=== PATIENT | female | born 1955 | race Two or more races ===

== ENCOUNTER 2024-06-15 18:42 | Inpatient (IN) | payer OTHER, MEDICAID ==
[~2024-06-15] VITALS: Ht 147.3 cm; Wt 103.2 kg
[~2024-06-15 18:42] MED LIST: ALBU108A5 IN; ATOR-507 PO; DORZ2SOL18 EACHEYE; GLIP10TA9 PO; HYDR50TA47 PO; INSU1INJ3 SC; LEVO175T4 PO; METO-159 PO; SPIR25TA8 PO
--- NOTE | 2024-06-15 19:00 | ECG ---
[facility] Test Date: 2024-06-15 Test Time: 18:48:58 Pat Name: DARLIN COTTRELL Department: ER Room: [facility]T Gender: F Inspector Boiler: HILARIO : 1955 Requested By: EDDIE MATOS Order Number: [id number] Reading MD: Woodrow Barriga Measurements Intervals [place] Rate: 83 P: 44 NH: 182 QRS: -28 QRSD: 109 T: 70 QT: 413 QTc: 486 Interpretive Statements Sinus rhythm Borderline left axis deviation Low voltage, precordial leads Anteroseptal infarct, old Electronically Signed On 06-20-2024 18:25:59 PDT by Woodrow Barriga Please click the below link to view image of tracing.
--- NOTE | 2024-06-15 19:14 | ED.PDOC ---
HPI Comments HPI: Poor Historian. 68 y.o female accompanied by family member, presents to the ED for an initial chief complaint of SOB associated with sternal nonradiating chest pain today. Patient was seen at urgent care earlier today for her symptoms. Per urgent care report, patient had an X ray done 3 months ago showing cardiomegaly and pulmonary edema with last X ray at out hospital on March showing pulmonary vascular congestion congestive heart failure low volume. Patient denies any other symptoms or pain at this time. VITALS: Temp: 98.2 F BP: 143/52 HR: 83 RR: 17 SPO2: 97% RA Past medical history: Thyroid disease, on ASA 81mg, DM, CHF, CKD stage 3, hyperlipidemia Past surgical history: Denies REVIEW OF SYSTEMS: CONSTITUTIONAL: Denies acute: fever, diaphoresis, chills, generalized weakness. HEAD: Denies acute: headache, photophobia Eyes: Denies acute: Double vision, vision loss, eye pain, eye discharge. EARS: Denies acute: tinnitus, hearing loss, ear discharge, ear pain, THROAT: Denies acute: sore throat, swelling, difficulty swallowing , pain with swallowing, change in voice. NECK: Denies acute: neck pain, neck swelling, stiff neck. HEART: Denies acute : palpitations, LUNGS: Denies acute: wheezing, cough, hemoptysis ABDOMEN: Denies acute: abdominal pain, Nausea, Vomiting, diarrhea, melena , hematemesis, hematochezia SKIN: Denies acute: rash, redness, lesions, itchiness. EXTREMITIES: Denies acute: calf pain, numbness, tingling, weakness, denies pain in extremity. Denies acute: Low back pain. Neuro: Denies acute: focal neurological deficit, motor or sensory focal neurological deficit, tremors, seizure like activity, confusion, dizziness, change in mental status, loss of bowel or bladder function, cauda equina like symptoms. : Denies acute: dysuria, hematuria, flank pain, increase in urinary frequency. PSYCH: Denies acute: hallucination, suicidal ideation, homicidal ideation. FEMALE: Denies acute: abnormal vaginal bleeding, foul odor, unusual discharge. PHYSICAL EXAM: General: no acute distress, awake and alert. Head: normocephalic, atraumatic. Neck: supple, trachea is midline, no swelling. Throat: Normal phonation. Eyes:, no erythema, no purulent discharge, no proptosis, no icterus. Heart: regular rate, regular rhythm, no significant murmur appreciated. Lungs: no apparent respiratory distress, Able to speak in full sentences. No wheezing, no rhonchi, no crackles. No stridors Clear to auscultation bilaterally. Abdomen: non tender to palpation, non distended, soft, no guarding, no rebound, + bowel sounds. Obese Neuro: Awake, Alert, oriented to name, self, situation, follows commands GCS=15. Speech is normal. Skin: no petechia, no purpura, no cyanosis, non-pale, not jaundice. Lower extremities: --1/4 bilateral - Pitting edema no deformity, no focal swelling, no calf TTP. Makes eye contact. moves all four extremities. ED COURSE: Chief Complaint: Chest Pain Time Seen by MD: 19:02 Reviewed Notes: Allergies Allergies: Uncoded Allergies: BERLINTA (Allergy, Unknown, 06/15/24) Information Source: Patient, Relative Mode of Arrival: Wheelchair Past Medical History PAST MEDICAL HISTORY: CHF, CKF, DM, Thyroid Surgical History: Denies all surgeries WAREHOUSE MANAGER History: No Pertinent WAREHOUSE MANAGER History Family History Family History: Reviewed,noncontributory to illness Social History Smoker: Non-Smoker Alcohol: Denies ETOH Use Drugs: Denies Drug Use Lives In: Home Was a procedure done? Was a procedure done?: No CP Differential Dx Differential Diagnosis: N/A Differential Diagnosis: Angina, Chest Wall Pain, Costochondritis, Pericarditis, Pneumonia, Pulmonary Embolus, Other (Ddx include but not limitied to gastritis, musculoskeletal pain, radiculopathy, atypical chest pain, dissection, aneurysm, ACS, unstable angina, hiatal hernia, GERD, anxiety, costochondritis, PE, pneumothroax, neoplasm, cardiac ischemia, drug abuse, anemia.) X-Ray, Labs, Meds, VS Vital Signs Date Time Temp Pulse Resp B/P (MAP) Pulse Ox O2 Delivery O2 Flow Rate FiO2 06/15/24 18:56 98.2 97 17 143/52 (82) 97 Lab Test 06/15/24 22:44 06/15/24 21:00 06/15/24 20:34 06/15/24 19:29 Range/Units Lactic Acid Level 1.7 2.3 *H 0.4-2.0 mmol/L Troponin I High Sensitivity 36 *H 34 </=34 ng/L Prothrombin Time 10.7 9.3-11.8 sec Prothrombin Time INR 1.01 0.9-1.15 D-Dimer, Quantitative 0.35 0.0-0.49 mg/L FEU Blood Gas Specimen Type Arterial Blood Gas Sample Site Right radial Blood Gas Patient Temperature 37.0 Arterial Blood Date Drawn [id number] Arterial Blood pH 7.487 H 7.350-7.450 Arterial Blood Partial Pressure CO2 33.7 32.0-45.0 mmHg Arterial Blood Partial Pressure O2 57.9 L 83.0-108.0 mmHg Arterial Blood HCO3 24.9 21.0-28.0 mmol/L Arterial Blood Oxygen Saturation 89.6 L 94.0-98.0 % Arterial Blood Base Excess 1.8 -2.0-3.0 mmol/L Arterial Blood Oxyhemoglobin 88.5 L 94.0-98.0 % Arterial Blood Carboxyhemoglobin 0.7 0.5-1.5 % Arterial Blood Methemoglobin 0.5 0.0-1.5 % Vidal Test Modified Blood Gas Total Hemoglobin 10.70 L 12.0-16.0 g/dL Blood Gas Modality Room air FiO2 % 21.0 Test 06/15/24 19:24 Range/Units White Blood Count 16.2 H 4.4-10.8 10^3/uL Red Blood Count 3.26 L 4.0-5.20 10^6/uL Hemoglobin 10.0 L 12.2-16.2 g/dL Hematocrit 29.2 L 36.0-46.0 % Mean Corpuscular Volume 89.5 80.0-100.0 fL Mean Corpuscular Hemoglobin 30.8 28.0-32.0 pg Mean Corpuscular Hemoglobin Concent 34.4 32.0-36.0 g/dL Red Cell Distribution Width 16.3 H 11.8-14.3 % Platelet Count 245 140-450 10^3/uL Mean Platelet Volume 8.4 6.9-10.8 fL Neutrophils (%) (Auto) 80.2 H 37.0-80.0 % Lymphocytes (%) (Auto) 9.6 L 10.0-50.0 % Monocytes (%) (Auto) 8.5 0.0-12.0 % Eosinophils (%) (Auto) 1.5 0.0-7.0 % Basophils (%) (Auto) 0.2 0.0-2.0 % Neutrophils # (Auto) 13.0 H 1.6-8.6 10 ^3/uL Lymphocytes # (Auto) 1.6 0.4-5.4 10 ^3/uL Monocytes # (Auto) 1.4 H 0-1.3 10 ^3/uL Eosinophils # (Auto) 0.2 0-0.8 10 ^3/uL Basophils # (Auto) 0 0-0.2 10 ^3/uL Nucleated Red Blood Cells 0.2 % Sodium Level 138 136-145 mmol/L Potassium Level 3.9 3.5-5.1 mmol/L Chloride Level 101 98-107 mmol/L Carbon Dioxide Level 24 20-31 mmol/L Anion Gap 13 5-15 Blood Urea Nitrogen 24 H 9-23 mg/dL Creatinine 1.10 H 0.550-1.02 mg/dL Glomerular Filtration Rate Calc 54 >90 mL/min BUN/Creatinine Ratio 21.8 H 10.0-20.0 Serum Glucose 183 H 74-106 mg/dL Calcium Level 9.4 8.7-10.4 mg/dL Total Bilirubin 0.7 0.2-1.0 mg/dL Aspartate Amino Transferase (AST) 18 13-40 U/L Alanine Aminotransferase (ALT) 20 7-40 U/L Alkaline Phosphatase 80 46-116 U/L Troponin I High Sensitivity 32 </=34 ng/L B-Type Natriuretic Peptide 238.87 0-100 pg/mL Total Protein 7.3 5.7-8.2 g/dL Albumin 4.6 3.2-4.8 g/dL Current Medications Medications (Trade) Dose Ordered Sig/Fela Route Start Time Stop Time Status Last Admin Aspirin (Ecotrin Enteric Coated Tablet) 325 mg ONCE ONCE PO 06/15/24 19:15 06/15/24 19:16 DC 06/15/24 23:32 Ceftriaxone Sodium 50 ml @ 100 mls/hr ONCE ONCE IV 06/15/24 20:30 06/15/24 20:59 DC 06/16/24 00:[address] [address] Ph: [phone] DIAGNOSTIC IMAGING Diagnostic Imaging Report : [id number] Signed PATIENT: DARLIN COTTRELL ACCT: [id number] UNIT: [id number] : 1955 LOC: OVERFLOW ROOM / BED: [facility] / A AGE / SEX: 68 / F ADM STATUS: ADM IN SERVICE 2310 ORDERING PHYSICIAN: JESSICA MEDRANO PROCEDURE(s): LFTCT - CT L FOOT WO CONTRAST REASON: left foot wound ORDER NUMBER(s): [id number], ACCESSION NUMBER(s): [id number] EXAM: CT CT L FOOT WO CONTRAST INDICATION: left foot wound Exam Date: 06/15/2024 11:17 PM COMPARISON: None TECHNIQUE: CT of the left foot without IV contrast administration. RADIATION DOSE: CTDIvol: 7.75 mGy, DLP: 237.14 mGy*cm Findings/ IMPRESSION: Status post amputation of the 1st digit. No evidence of acute fracture or dislocation. No obvious destructive osseous lesions. Diffuse subcutaneous tissue fat stranding and increased attenuation which may be from edema versus cellulitis versus phlegmon. No focal fluid collection to suggest abscess. Large inferior and posterior calcaneal enthesophytes. Large talar beaking. Diffuse vascular calcifications. ATED BY: JOLEEN MEJÍA DO DICTATED DATE/TIME: 06/16/2433 SIGNED BY: JOLEEN MEJÍA DO SIGNED DATE/TIME: 06/16/2433 CC: [address] [address] Ph: [phone] DIAGNOSTIC IMAGING Diagnostic Imaging Report : [id number] Signed PATIENT: DARLIN COTTRELL ACCT: [id number] UNIT: [id number] : 1955 LOC: ER ROOM / BED: / AGE / SEX: 68 / F ADM STATUS: REG ER SERVICE 1858 ORDERING PHYSICIAN: EDDIE MATOS DO PROCEDURE(s): CXRP - CHEST PORTABLE REASON: cp ORDER NUMBER(s): [id number], ACCESSION NUMBER(s): [id number] EXAMINATION: AP portable chest radiograph CLINICAL HISTORY: Chest pain COMPARISON: None FINDINGS: Cardiac silhouette appears enlarged. Central vascular redistribution and interstitial prominence. No definite pleural effusion or pneumothorax. No lobar consolidation identified. IMPRESSION: Congestive type pattern. Please correlate to exclude atypical infection. ATED BY: SINGH DAVEY MD DICTATED DATE/TIME: 06/15/241946 SIGNED BY: SINGH DAVEY MD SIGNED DATE/TIME: 06/15/241946 CC: Time of 1ST Reevaluation: 19:06 Reevaluation 1ST: Unchanged Patient Education/Counseling: Diagnosis, Treatment Family Education/Counseling: No Family Present Comments Patient presented with the above HPI.---body---workup was initiated. patient was found with the above mentioned diagnosis. the following medications were ordered: please refer to order lists of meds and tests obtained by myself Dr. Matos. Patient ED course and VS have been stabilized. Patient has been reassessed in the ED and remained in a stable condition. Pertinent incidental findings were discussed with the patient and/or family. Patient/family voices understanding and is agreeable with plan. Patient has been observed in the ED adequate length of time to insure improvement/stability. Escalation of care considered: Consideration of escalation to observation or admission Patient was ADMITTED to the medicine team for further evaluation and treatment of their presentation. D-dimer was negative. Chest x-ray suggests a pneumonia. Antibiotics initiated. All the reports of any imaging studies that were ordered by myself were reviewed by myself. Departure 1 Departure Time of Disposition: 20:21 Impression: Primary Impression: Chest pain Additional Impressions: Dyspnea Pneumonia Leukocytosis Hypoxemia Elevated troponin Disposition: ADMITTED INPATIENT Admit to: Tele Condition: Guarded Discharged With: Self Critical Care Note Critical Care Time?: Yes (35 min-critical care time only) Heart Score Heart Score: Heart Score Response (Comments) Value History Slightly Suspicious 0 EKG Normal 0 Age >65 2 Risk Factors >3 or Hx ASHD 2 Troponin 1-2 x's Normal limit 1 Total 5 I personally scribed for EDDIE MATOS DO ([email or web address]) on 06/15/24 at 19:14. Electronically submitted by Jacquelin Sanchez ([email or web address]). I personally scribed for EDDIE MATOS DO ([email or web address]) on 06/16/24 at 01:03. Electronically submitted by Masoud Guadarrama ([email or web address]). EDDIE MATOS DO Jun 15, 2024 19:14
--- NOTE | 2024-06-15 19:49 | DVH ---
EXAMINATION: AP portable chest radiograph CLINICAL HISTORY: Chest pain COMPARISON: None FINDINGS: Cardiac silhouette appears enlarged. Central vascular redistribution and interstitial prominence. No definite pleural effusion or pneumothorax. No lobar consolidation identified. IMPRESSION: Congestive type pattern. Please correlate to exclude atypical infection.
[2024-06-15 20:02] LABS: Basophils # (auto) 0 10 ^3/uL (0-0.2); Basophils % (auto) 0.2 % (0.0-2.0); Eosinophils # (auto) 0.2 10 ^3/uL (0-0.8); Eosinophils % (auto) 1.5 % (0.0-7.0); Hematocrit 29.2 % (36.0-46.0); Lymphocytes # (auto) 1.6 10 ^3/uL (0.4-5.4); Lymphocytes % (auto) 9.6 % (10.0-50.0); Mean Corpuscular Hemoglobin 30.8 pg (28.0-32.0); Mean Corpuscular Hgb Conc. 34.4 g/dL (32.0-36.0); Mean Corpuscular Volume 89.5 fL (80.0-100.0); Monocytes # (auto) 1.4 10 ^3/uL (0-1.3); Monocytes % (auto) 8.5 % (0.0-12.0); Neutrophils % (auto) 80.2 % (37.0-80.0); Nucleated Red Blood Cells % 0.2 %; Platelet Count (auto) 245 10^3/uL (140-450); Red Blood Cells 3.26 10^6/uL (4.0-5.20); Red Cell Distribution Width 16.3 % (11.8-14.3); White Blood Cell 16.2 10^3/uL (4.4-10.8)
[2024-06-15 20:21] LABS: Alanine Aminotransferase 20 U/L (7-40); Albumin 4.6 g/dL (3.2-4.8); Alkaline Phosphatase 80 U/L (46-116); Anion Gap 13 (5-15); Aspartate Aminotransferase 18 U/L (13-40); BUN/Creatinine Ratio 21.8 (10.0-20.0); Bilirubin, Total 0.7 mg/dL (0.2-1.0); Calcium 9.4 mg/dL (8.7-10.4); Carbon Dioxide 24 mmol/L (20-31); Chloride 101 mmol/L (98-107); Potassium 3.9 mmol/L (3.5-5.1); Sodium 138 mmol/L (136-145); Total Protein 7.3 g/dL (5.7-8.2)
[2024-06-15 20:23] LABS: Lactic Acid w/Reflex 2.3 mmol/L (0.4-2.0)
[2024-06-15 20:23] LABS: Blood Urea Nitrogen 24 mg/dL (9-23); Glucose 183 mg/dL (74-106)
[2024-06-15 20:41] LABS: Base Excess 1.8 mmol/L (-2.0-3.0)
[2024-06-15] MEDS ORDERED: ONDANSETRON HCL 4 MG/2 ML VIAL IV PRN (23:15)
[2024-06-15] MEDS ORDERED: MORPHINE SULFATE INJ 2 MG/ml SYRG IV PRN (23:15)
[2024-06-15] MEDS ORDERED: NITROGLYCERIN 0.4 MG SL TAB SL PRN (23:15)
[2024-06-15] MEDS ORDERED: HYDROcodone-ACET 5/325MG TAB PO PRN (23:15)
[2024-06-15] MEDS ORDERED: ACETAMINOPHEN 325 MG TAB PO PRN (23:15)
[2024-06-15] MEDS: ASPirin-EC 325mg tab PO ONE (23:32)
[2024-06-15 23:36] LABS: INR 1.01 (0.9-1.15); Prothrombin Time 10.7 sec (9.3-11.8)
--- NOTE | 2024-06-16 00:38 | DVH ---
EXAM: CT CT L FOOT WO CONTRAST INDICATION: left foot wound Exam Date: 06/15/2024 11:17 PM COMPARISON: None TECHNIQUE: CT of the left foot without IV contrast administration. RADIATION DOSE: CTDIvol: 7.75 mGy, DLP: 237.14 mGy*cm Findings/ IMPRESSION: Status post amputation of the 1st digit. No evidence of acute fracture or dislocation. No obvious de structive osseous lesions. Diffuse subcutaneous tissue fat stranding and increased attenuation which may be from edema versus cellulitis versus phlegmon. No focal fluid collection to suggest abscess. La rge inferior and posterior calcaneal enthesophytes. Large talar beaking. Diffuse vascular calcificati ons.
[2024-06-16] MEDS: cefTRIAXone 1GM/50ML D5W 50 ML IV ONE (00:58)
[2024-06-16 01:11] LABS: COVID19 ANTIGEN SOFIA FIA NEGATIVE (NEGATIVE); Rapid Influenza A Negative (Negative); Rapid Influenza B Negative (Negative)
[2024-06-16] MEDS ORDERED: VANCOMYCIN PER PHARMACY 0 MG IV SCH (01:15)
[2024-06-16] MEDS ORDERED: DEXTROSE (50%) 50ML SYRG IV PRN (01:15)
--- NOTE | 2024-06-16 01:27 | DVHHP2 ---
Admitting Diagnosis: CHF exacerbation, hypoxia, left foot wound History of Present Illness History Source: Patient, Family Exam Limitations: No limitations HPI Mrs. Joann Galvan is a 68 y.o female accompanied by family member, with a history of DM, CHF, CKD stage III, Hyperlipidemia, Thyroid disease who presents with a chief complaint of SOB x 2 days associated with chest pain onset yesterday morning. Patient was seen at urgent care earlier today for her symptoms and was sent to the ED for further evaluation. Patient also reports r ight heel ulcer and recent left greater toe amputation by Dr. Simeon , with possible wound infection. Patient reports midsternal chest pain with associated exertional dyspnea, and bilateral lower extremity swelling. Patient denies fevers, chills, palpitations, headaches, dizziness. Patient with a heart score of 6. Patient admitted for further evaluation. Past Medical History Cardiac: CHF, HTN, Hyperlipidemia Pulmonary: No pertinent Hx Central Nervous System: No pertinent Hx GI: No pertinent Hx Hemotology/Oncology: No pertinent Hx Hepatobiliary: No pertinent Hx Psychiatric: No pertinent Hx Musculoskeletal: No pertinent Hx Rheumotologic: No pertinent Hx Infectious Disease: No peritnent Hx ENT: No pertinent Hx Renal/: CKD (stage III) Endocrine: Hypothyroidism, NIDDM Dermatology: No pertinent Hx Smoker: No Hx (Negative) Alocohol: None Drugs: None Lives with: With family Domestic Violence: Neg Review of Systems Constitutional: No symptom reported Ears, Nose, & Throat: No symptom reported Eyes: No symptom reported Pulmonary/Respiratory: Dyspnea Cardiovascular: Chest Pain Gastrointestinal: No symptom reported Genitourinary: No symptom reported Musculoskeletal: No symptom reported Skin: No symptom reported Psychiatric: No symptom reported Endocrine: No symptom reported Hemotologic/Lymphatic: No symptom reported All Other Systems bilateral lower extremity swelling, right heel ulcer, left greater toe amputation with "infection" H&P Exam Vital Signs Vital Signs Date Time Temp Pulse Resp B/P (MAP) Pulse Ox O2 Delivery O2 Flow Rate FiO2 06/15/24 18:56 98.2 97 17 143/52 (82) 97 General Appeara: Well developed, Well nourished Head Exam: Normal inspection Neck Exam: Normal inspection, Non-tender, Normal alignment Eye Exam: bilateral eye Normal inspection, bilateral eye PERRL, bilateral eye EOMI Ear Exam: bilateral ear Auricle normal Nasal Exam: Normal inspection Mouth: Normal Inspection Pulmonary/Respiratory: Normal inspection, Chest non-tender, Crackles Cardiovascular/Chest: Normal inspection, Edema (bilateral lower extremity), Regular rate, Normal Rhythm Peripheral Pulses: 2+ dorsalis pedis (R), 2+ dorsalis pedis (L), 2+ Radial (R), 2+ Radial (L) Abdominal Exam: Normal bowel sounds, Soft Rectal Exam: Deferred Pelvic Exam: Not done Legs: bilateral leg swelling (+3 pitting edema) Foot: bilateral foot soft tissue tenderness, bilateral foot swelling; left foot other (greater toe amputation) GEOSPATIAL SPECIALIST Exam: Normal hearing, Normal speech, PERRL Neuro/Mental St: Alert, Oriented Appearance: Appropriate appearance, Appropriate insight Eye contact/ Speech: Cooperative, Good eye contact, Normal speech Thoughts/Psych: Normal thought pattern Skin Exam: Normal inspection, Other (right heel ulcer, left greater toe s/p amputation with wound) Wounds right heel ulcer, left greater toe s/p amputation with wound Labs/Xrays Labs Test 06/16/24 00:32 06/15/24 22:44 06/15/24 21:00 06/15/24 20:34 Range/Units Lactic Acid Level 1.7 0.4-2.0 mmol/L Troponin I High Sensitivity 36 *H </=34 ng/L Prothrombin Time 10.7 9.3-11.8 sec Prothrombin Time INR 1.01 0.9-1.15 D-Dimer, Quantitative 0.35 0.0-0.49 mg/L FEU Blood Gas Specimen Type Arterial Blood Gas Sample Site Right radial Blood Gas Patient Temperature 37.0 Arterial Blood Date Drawn [id number] Arterial Blood pH 7.487 H 7.350-7.450 Arterial Blood Partial Pressure CO2 33.7 32.0-45.0 mmHg Arterial Blood Partial Pressure O2 57.9 L 83.0-108.0 mmHg Arterial Blood HCO3 24.9 21.0-28.0 mmol/L Arterial Blood Oxygen Saturation 89.6 L 94.0-98.0 % Arterial Blood Base Excess 1.8 -2.0-3.0 mmol/L Arterial Blood Oxyhemoglobin 88.5 L 94.0-98.0 % Arterial Blood Carboxyhemoglobin 0.7 0.5-1.5 % Arterial Blood Methemoglobin 0.5 0.0-1.5 % Vidal Test Modified Blood Gas Total Hemoglobin 10.70 L 12.0-16.0 g/dL Blood Gas Modality Room air FiO2 % 21.0 Test 06/15/24 19:24 Range/Units White Blood Count 16.2 H 4.4-10.8 10^3/uL Red Blood Count 3.26 L 4.0-5.20 10^6/uL Hemoglobin 10.0 L 12.2-16.2 g/dL Hematocrit 29.2 L 36.0-46.0 % Mean Corpuscular Volume 89.5 80.0-100.0 fL Mean Corpuscular Hemoglobin 30.8 28.0-32.0 pg Mean Corpuscular Hemoglobin Concent 34.4 32.0-36.0 g/dL Red Cell Distribution Width 16.3 H 11.8-14.3 % Platelet Count 245 140-450 10^3/uL Mean Platelet Volume 8.4 6.9-10.8 fL Neutrophils (%) (Auto) 80.2 H 37.0-80.0 % Lymphocytes (%) (Auto) 9.6 L 10.0-50.0 % Monocytes (%) (Auto) 8.5 0.0-12.0 % Eosinophils (%) (Auto) 1.5 0.0-7.0 % Basophils (%) (Auto) 0.2 0.0-2.0 % Neutrophils # (Auto) 13.0 H 1.6-8.6 10 ^3/uL Lymphocytes # (Auto) 1.6 0.4-5.4 10 ^3/uL Monocytes # (Auto) 1.4 H 0-1.3 10 ^3/uL Eosinophils # (Auto) 0.2 0-0.8 10 ^3/uL Basophils # (Auto) 0 0-0.2 10 ^3/uL Nucleated Red Blood Cells 0.2 % Sodium Level 138 136-145 mmol/L Potassium Level 3.9 3.5-5.1 mmol/L Chloride Level 101 98-107 mmol/L Carbon Dioxide Level 24 20-31 mmol/L Anion Gap 13 5-15 Blood Urea Nitrogen 24 H 9-23 mg/dL Creatinine 1.10 H 0.550-1.02 mg/dL Glomerular Filtration Rate Calc 54 >90 mL/min BUN/Creatinine Ratio 21.8 H 10.0-20.0 Serum Glucose 183 H 74-106 mg/dL Calcium Level 9.4 8.7-10.4 mg/dL Total Bilirubin 0.7 0.2-1.0 mg/dL Aspartate Amino Transferase (AST) 18 13-40 U/L Alanine Aminotransferase (ALT) 20 7-40 U/L Alkaline Phosphatase 80 46-116 U/L B-Type Natriuretic Peptide 238.87 0-100 pg/mL Total Protein 7.3 5.7-8.2 g/dL Albumin 4.6 3.2-4.8 g/dL Assessment/Plan Problem List: (1) Chest pain (2) CHF (congestive heart failure) (3) Dyspnea (4) Ulcer of right heel (5) Left great toe amputee (6) Leukocytosis Plan This is a 68 yo female with a known history of DM type 2, CHF, CKD stage III, Hyperlipidemia, Thyroid disease, right heel diabetic ulcer, s/p left greater toe amputee presents to the hospital with shortness of breath and chest pain. Patient with a heart score of 6. Patient found to have 1. Acute CHF exacerbation 2. Fluid overload 3. Hypoxia 4. Chest pain rule out ACS 5. Right foot diabetic ulcer 6. status post right greater toe amputation with wound 7. DM2 8. CKD stage III 9. hx Hypothyroidism Plan Admit Telemetry unit Cardiology consultation, 2D echocardiogram, serial troponin levels, ASA, Statin, Beta marco antonio IV diuresis Furosemide, Fluid Restriction, strict I&O's Infectious Disease consultation, IV antibiotics Vancomycin per pharmacy , Ceftriaxone BC x2, Urine culture, wound culture Glucose monitoring ac & hs coverage with regular insulin mild dose sliding scale Reconcile home medications , continue as needed Monitor BMP, CBC, lactic Discussed all above with patient and patient family , both verbalized agreement and understanding of care plan. All questions were answered. Discussed care plan with supervising MD. patient's chart is reviewed and discussed with the nurse practitioner. Patient seen and evaluated and admitted by nurse practitioner. I agree with the her evaluation, documentation, assessment and care plan as outlined. Plan discussed with: Patient, Daughter, Other Code Visit Code Visit Total Time (mins): 45 JESSICA MEDRANO Jun 16, 2024 01:27 SANGEETHA WHALEN MD Jun 16, 2024 17:36
[2024-06-16] MEDS: VANCOMYCIN 1GM/250ML KIT 250 ML IV SCH (01:42)
[2024-06-16 02:38] LABS: Urine Bacteria MANY /hpf (None Seen); Urine Blood TRACE /uL (Negative); Urine Clarity Turbid (Clear); Urine Color Colorless (Yellow); Urine Mucus FEW (None Seen); Urine Protein, UAD 1+ (Negative); Urine Specific Gravity 1.012 (1.001-1.035); Urine Squamous Epithelial Cell FEW /hpf (<5); Urine Urobilinogen Normal (Negative); Urine WBC 60 /HPF (0-5); Urine WBC Clumps PRESENT /hpf (None Seen); Urine pH 5.5 (5.0-9.0)
--- NOTE | 2024-06-16 03:23 | DVH ---
Clinical History: swelling , pain Comparison: None Technique: Duplex Doppler evaluation of the deep venous system of the right and left lower extremity from the co mmon femoral vein to the popliteal vein including color Doppler and spectral/pulsed waveform analysis was performed. Findings: The common femoral vein demonstrates appropriate compressibility and waveform variability. There is compressibility/patency of the great saphenous vein at the proximal thigh. The femoral vein demonstrates appropriate compressibility and waveform variability. The deep femoral vein demonstrates appropriate compressibility and waveform variability. The popliteal vein demonstrates appropriate compressibility and waveform variability. There is normal compressibility at the tibioperoneal trunk. Impression: 1. No right or left deep venous thrombosis. 2. If clinical concern/symptoms persist or worsen, short-interval follow-up study is suggested.
[2024-06-16] MEDS: ACCU-CHEK COMFORT CURVE STRIP VI SCH (06:22)
[2024-06-16] MEDS: InsuLIN REG 1unit/0.01ml Soln (100units/ml) SC SCH (06:28)
[2024-06-16] MEDS: LEVOTHYROXINE SODIUM 50 MCG TAB PO SCH (06:32)
[2024-06-16 06:46] LABS: Anion Gap 11 (5-15); Carbon Dioxide 24 mmol/L (20-31); Chloride 100 mmol/L (98-107); Potassium 3.8 mmol/L (3.5-5.1)
[2024-06-16 06:47] LABS: Calcium 8.7 mg/dL (8.7-10.4)
[2024-06-16 06:49] LABS: Sodium 135 mmol/L (136-145)
[2024-06-16 06:52] LABS: Blood Urea Nitrogen 23 mg/dL (9-23)
[2024-06-16 07:10] LABS: Glucose 268 mg/dL (74-106)
[2024-06-16] MEDS ORDERED: METOPROLOL TARTRATE 50 MG TAB PO SCH (10:00)
[2024-06-16] MEDS ORDERED: LOSARTAN POTASSIUM 50 MG TAB PO SCH (10:00)
[2024-06-16 11:06] LABS: Basophils # (auto) 0 10 ^3/uL (0-0.2); Basophils % (auto) 0.1 % (0.0-2.0); Eosinophils # (auto) 0.2 10 ^3/uL (0-0.8); Hematocrit 27.3 % (36.0-46.0); Hemoglobin 8.8 g/dL (12.2-16.2); Lymphocytes # (auto) 0.9 10 ^3/uL (0.4-5.4); Lymphocytes % (auto) 5.7 % (10.0-50.0); Mean Corpuscular Hemoglobin 30.6 pg (28.0-32.0); Mean Corpuscular Hgb Conc. 32.3 g/dL (32.0-36.0); Mean Corpuscular Volume 94.5 fL (80.0-100.0); Monocytes # (auto) 2.1 10 ^3/uL (0-1.3); Monocytes % (auto) 13.5 % (0.0-12.0); Neutrophils # (auto) 12.4 10 ^3/uL (1.6-8.6); Neutrophils % (auto) 79.7 % (37.0-80.0); Nucleated Red Blood Cells % 0.1 %; Platelet Count (auto) 236 10^3/uL (140-450); Red Blood Cells 2.88 10^6/uL (4.0-5.20); Red Cell Distribution Width 16.4 % (11.8-14.3); White Blood Cell 15.6 10^3/uL (4.4-10.8)
[2024-06-16] MEDS: ASPirin 81 mg TAB PO SCH (11:32)
[2024-06-16] MEDS: ENOXAPARIN SOD 40 MG/0.4 ML SYRINGE SC SCH (11:32)
[2024-06-16] MEDS: LOSARTAN POTASSIUM 50 MG TAB PO SCH (11:33)
[2024-06-16] MEDS: FAMOTIDINE 20 MG TAB PO SCH (11:33)
[2024-06-16] MEDS: FUROSEMIDE 40 MG/4 ML VIAL IV SCH (11:34)
[2024-06-16] MEDS: METOPROLOL TARTRATE 25 MG TAB PO SCH (11:43)
[2024-06-16 17:52] VITALS: BP 139/78; PULSE 89; RESP 19; TEMP 98.3; O2SAT 98
[2024-06-16 18:27] VITALS: BP 139/78; PULSE 89; RESP 19; TEMP 98.3; O2SAT 98
[2024-06-16 20:00] VITALS: PULSE 95; RESP 20; O2SAT 98
[2024-06-16] MEDS: cefTRIAXone 1GM/50ML D5W 50 ML IV SCH (21:02)
[2024-06-16 21:10] VITALS: BP 135/59; PULSE 93; RESP 20; TEMP 97.9; O2SAT 98
[2024-06-16] MEDS: ATORVASTATIN 20 MG TAB PO SCH (21:16)
--- NOTE | 2024-06-16 21:25 | DVHINCON2 ---
Date of service: Jun 16, 2024 Referring Physician Sarah Rogers NP Reason for Consultation Cellulitis History of Present Illness Patient is a 68-year-old female presents to the hospital with a chief complaint of Shortness of breath for the past 2 days associated with chest pain onset yesterday morning. Patient also reports right heel ulcer and recent left greater toe amputation by Dr. Simeon , with possible wound infection. Patient reports midsternal chest pain with associated exertional dyspnea, and bilateral lower extremity swelling. Past Medical History Patient's past medical history is significant for CHF, HTN, Hyperlipidemia, CKD (stage III), Hypothyroidism, NIDDM Family History: Patient reports no known family medical history. Social History Alcohol: None Drugs: None Lives with: With family Domestic Violence: Neg Allergies: Uncoded Allergies: BERLINTA (Allergy, Unknown, 06/15/24) Home Meds Active Scripts Ipratropium-Albuterol (Ipratropium Spelter/Albut) 1 Eliana Eliana, 1 ELIANA NEB BID, #30 EA Prov:SANGEETHA WHALEN MD 06/17/24 Cefdinir (Cefdinir) 300 Mg Cap, 1 CAP PO BID, #14 CAP Prov:SANGEETHA WHALEN MD 06/17/24 Losartan Potassium (Losartan Potassium) 25 Mg Tab, 25 MG PO BID, #60 TAB Prov:SANGEETHA WHALEN MD 06/17/24 Furosemide (Furosemide) 40 Mg Tab, 1 TAB PO BID, #30 TAB 1 Refill Prov:SANGEETHA WHALEN MD 06/17/24 Reported Medications Levothyroxine Sodium (Levothyroxine Sodium) 175 Mcg Tab, 1 TAB PO DAILY for 100 Days, #100 06/17/24 Glipizide (Glipizide) 10 Mg Tab, 1 TAB PO BID for 100 Days, #200 06/17/24 Insulin NPH Isophane & Reg (Hu (Humulin 70/30 Kwikpen (70-30) 100 Unit/ml) 1 Inj Inj, 65 UNITS SC QPM for 36 Days, #45 06/17/24 Insulin NPH Isophane & Reg (Hu (Humulin 70/30 Kwikpen (70-30) 100 Unit/ml) 1 Inj Inj, 60 UNITS SC QAM for 36 Days, #45 06/17/24 Atorvastatin Calcium (Lipitor) 40 Mg Tab, 1 TAB PO DAILY for 100 Days, #100 06/17/24 Spironolactone (Spironolactone) 25 Mg Tab, 1 TAB PO DAILY for 100 Days 06/17/24 Hydralazine Hcl (Hydralazine Hcl) 50 Mg Tab, 1 TAB PO BID for 100 Days, #200 06/17/24 Metoprolol Tartrate (Metoprolol Tartrate) 100 Mg Tab, 1 TAB PO BID for 100 Days, #200 06/17/24 Dorzolamide-Timolol (Dorzolamide Hcl/Timolol M) 1 Ml Eliana, 1 DROP EACHEYE BID for 38 Days, #10 06/17/24 Brimonidine Tartrate (Brimonidine Tartrate) 0.2 % Eliana, 1 DROP EACHEYE BID, #10 ML 3 Refills 06/17/24 Latanoprost (LATANOPROST) 0.005 % Eliana, 1 DROP EACHEYE QPM, #2.5 ML 6 Refills 06/17/24 Albuterol Sulfate (Albuterol Sulfate Hfa) 108 Mcg/Act Aer, 1-2 PUFF IN Q4-6HR for 17 Days, #18 06/17/24 Current Medications Current Medications Medications (Trade) Dose Ordered Sig/Fela Route PRN Reason Start Time Stop Time Status Last Admin Nitroglycerin (Ntrostat Sublingual) 0.4 mg Q5MINP PRN SL FOR CHEST PAIN 06/15/24 23:15 Morphine Sulfate 2 mg Q30M PRN IV FOR CHEST PAIN 06/15/24 23:15 Levothyroxine Sodium (Synthroid Tablet) 175 mcg DAILY PO 06/16/24 07:00 06/16/24 06:32 Losartan Potassium (Cozaar Tablet) 100 mg DAILY PO 06/16/24 10:00 06/16/24 09:59 DC Metoprolol Tartrate (Lopressor Tablet) 100 mg BID PO 06/16/24 10:00 06/16/24 09:59 DC Ondansetron HCl (Zofran) 4 mg Q6HPRN PRN IV NAUSEA / VOMITING 06/15/24 23:15 Aspirin 81 mg DAILY PO 06/16/24 10:00 06/16/24 11:32 Atorvastatin Calcium (Lipitor) 40 mg HS PO 06/16/24 22:00 06/16/24 21:16 Enoxaparin Sodium (Lovenox) 40 mg DAILY SC 06/16/24 10:00 06/16/24 11:32 Acetaminophen/ Hydrocodone Bitart (M[place]one 5/325MG Tab) 1 tab Q6HPRN PRN PO PAIN SCALE 4 THRU 6 06/15/24 23:15 Famotidine (Pepcid Tablet) 20 mg BID PO 06/16/24 10:00 06/16/24 21:16 Acetaminophen (Tylenol Tablet) 650 mg Q6HPRN PRN PO PAIN SCALE 1-3 OR TEMP>100.4 06/15/24 23:15 Furosemide (Lasix Injection) 40 mg BID IV 06/16/24 10:00 06/16/24 11:34 Diagnostic Test (Pha) (Accu-Chek Comfort Curve T) 1 strip ACHS 06/16/24 07:00 06/16/24 17:00 Insulin Human Regular (InsuLIN R) ACHS SC 06/16/24 07:00 06/16/24 17:47 Dextrose 50 ml UD PRN IV Blood Sugar LESS THAN 60 06/16/24 01:15 Vancomycin HCl 0 ml @ 0 mls/hr UD IV 06/16/24 01:15 Ceftriaxone Sodium 50 ml @ 100 mls/hr DAILY@2100 IV 06/16/24 21:00 06/16/24 21:02 Vancomycin HCl 250 ml @ 125 mls/hr Q2H IV 06/16/24 01:15 06/16/24 05:14 DC 06/16/24 04:48 Losartan Potassium (Cozaar Tablet) 50 mg DAILY PO 06/16/24 10:00 06/16/24 11:33 Metoprolol Tartrate (Lopressor Tablet) 25 mg BID PO 06/16/24 10:00 06/16/24 21:16 Vancomycin HCl 250 ml @ 250 mls/hr DAILY@0500 IV 06/17/24 05:00 Review of Systems General: No Fever, chills, night sweats or weight loss HEENT: No Sinus pain, headache, vision changes or sore throat Respiratory: Positive for Dyspnea. No Cough, sputum production Cardiovascular: Positive for Chest pain. No palpitations or leg edema Gastrointestinal: No Nausea, vomiting, diarrhea, abdominal pain Genitourinary: No Dysuria, urinary frequency, hematuria, pelvic pain Skin: No Rashes, ulcers, abscesses, redness or swelling Musculoskeletal: Positive for bilateral lower extremity swelling, right heel ulcer, left greater toe amputation with "infection" Neurologic: No Altered mental status, headaches or focal neurological deficits Psychiatric: No Anxiety, depression or confusion Vital Signs Vital Signs Date Time Temp Pulse Resp B/P (MAP) Pulse Ox O2 Delivery O2 Flow Rate FiO2 06/16/24 21:16 93 135/59 06/16/24 21:10 97.9 20 98 97.9 06/16/24 18:27 Nasal Cannula* 2 28 Physical Exam General Appearance: Well developed, Well nourished Head Exam: Normal inspection Neck Exam: Normal inspection, Non-tender, Normal alignment Eye Exam: bilateral eye Normal inspection, bilateral eye PERRL, bilateral eye EOMI Ear Exam: bilateral ear Auricle normal Nasal Exam: Normal inspection Mouth: Normal Inspection Pulmonary/Respiratory: Normal inspection, Chest non-tender, Crackles Cardiovascular/Chest: Normal inspection, Edema (bilateral lower extremity), Regular rate, Normal Rhythm Abdominal Exam: Normal bowel sounds, Soft Legs: bilateral leg swelling (+3 pitting edema) Foot: Bilateral foot swelling; left foot other (greater toe amputation) 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: Normal hearing, Normal speech, PERRL Neuro/Mental St: Alert, Oriented Skin Exam: Normal inspection, Other (right heel ulcer, left greater toe s/p amputation with wound) Labs/Diagnostic Data Labs Test 06/16/24 17:42 06/16/24 17:25 06/16/24 10:49 06/16/24 06:21 Range/Units POC Glucose 211 H 70-106 mg/dl Troponin I High Sensitivity 47 *H </=34 ng/L White Blood Count 15.6 H 4.4-10.8 10^3/uL Red Blood Count 2.88 L 4.0-5.20 10^6/uL Hemoglobin 8.8 L 12.2-16.2 g/dL Hematocrit 27.3 L 36.0-46.0 % Mean Corpuscular Volume 94.5 # 80.0-100.0 fL Mean Corpuscular Hemoglobin 30.6 28.0-32.0 pg Mean Corpuscular Hemoglobin Concent 32.3 32.0-36.0 g/dL Red Cell Distribution Width 16.4 H 11.8-14.3 % Platelet Count 236 140-450 10^3/uL Mean Platelet Volume 8.0 6.9-10.8 fL Neutrophils (%) (Auto) 79.7 37.0-80.0 % Lymphocytes (%) (Auto) 5.7 L 10.0-50.0 % Monocytes (%) (Auto) 13.5 H 0.0-12.0 % Eosinophils (%) (Auto) 1.0 0.0-7.0 % Basophils (%) (Auto) 0.1 0.0-2.0 % Neutrophils # (Auto) 12.4 H 1.6-8.6 10 ^3/uL Lymphocytes # (Auto) 0.9 0.4-5.4 10 ^3/uL Monocytes # (Auto) 2.1 H 0-1.3 10 ^3/uL Eosinophils # (Auto) 0.2 0-0.8 10 ^3/uL Basophils # (Auto) 0 0-0.2 10 ^3/uL Nucleated Red Blood Cells 0.1 % Sodium Level 135 L 136-145 mmol/L Potassium Level 3.8 3.5-5.1 mmol/L Chloride Level 100 98-107 mmol/L Carbon Dioxide Level 24 20-31 mmol/L Anion Gap 11 5-15 Blood Urea Nitrogen 23 9-23 mg/dL Creatinine 1.15 H 0.550-1.02 mg/dL Glomerular Filtration Rate Calc 52 >90 mL/min BUN/Creatinine Ratio 20.0 10.0-20.0 Serum Glucose 268 H 74-106 mg/dL Calcium Level 8.7 8.7-10.4 mg/dL Test 06/16/24 02:30 06/16/24 01:35 06/16/24 00:32 06/15/24 21:00 Range/Units Lactic Acid Level 2.0 0.4-2.0 mmol/L Urine Color Colorless Yellow Urine Clarity Turbid H Clear Urine pH 5.5 5.0-9.0 Urine Specific [place] 1.012 1.001-1.035 Urine Protein 1+ H Negative Urine Ketones Negative Negative Urine Blood Trace H Negative /uL Urine Nitrite Negative Negative Urine Bilirubin Negative Negative Urine Urobilinogen Normal Negative mg/dL Urine Leukocyte Esterase 2+ Negative /uL Urine RBC 2 0 - 4 /hpf Urine WBC Clumps Present None Seen /hpf Urine Microscopic WBC 60 H 0-5 /HPF Urine Squamous Epithelial Cells Few <5 /hpf Urine Bacteria Many H None Seen /hpf Urine Mucus Few None Seen Urine Glucose Normal Normal mg/dL Influenza Type A Antigen Negative Negative Influenza Type B Antigen Negative Negative SARS-CoV-2 Antigen (Rapid) Negative NEGATIVE Prothrombin Time 10.7 9.3-11.8 sec Prothrombin Time INR 1.01 0.9-1.15 D-Dimer, Quantitative 0.35 0.0-0.49 mg/L FEU Test 06/15/24 20:34 06/15/24 19:24 Range/Units Blood Gas Specimen Type Arterial Blood Gas Sample Site Right radial Blood Gas Patient Temperature 37.0 Arterial Blood Date Drawn [id number] Arterial Blood pH 7.487 H 7.350-7.450 Arterial Blood Partial Pressure CO2 33.7 32.0-45.0 mmHg Arterial Blood Partial Pressure O2 57.9 L 83.0-108.0 mmHg Arterial Blood HCO3 24.9 21.0-28.0 mmol/L Arterial Blood Oxygen Saturation 89.6 L 94.0-98.0 % Arterial Blood Base Excess 1.8 -2.0-3.0 mmol/L Arterial Blood Oxyhemoglobin 88.5 L 94.0-98.0 % Arterial Blood Carboxyhemoglobin 0.7 0.5-1.5 % Arterial Blood Methemoglobin 0.5 0.0-1.5 % Vidal Test Modified Blood Gas Total Hemoglobin 10.70 L 12.0-16.0 g/dL Blood Gas Modality Room air FiO2 % 21.0 Total Bilirubin 0.7 0.2-1.0 mg/dL Aspartate Amino Transferase (AST) 18 13-40 U/L Alanine Aminotransferase (ALT) 20 7-40 U/L Alkaline Phosphatase 80 46-116 U/L B-Type Natriuretic Peptide 238.87 0-100 pg/mL Total Protein 7.3 5.7-8.2 g/dL Albumin 4.6 3.2-4.8 g/dL Assessment Patient is a 68-year-old female presents to the hospital with: Fluid overload Acute CHF exacerbation Chronic venous stasis Right foot diabetic ulcer Hypoxia Pulmonary edema Status post right greater toe amputation with wound DM2 CKD stage III Chest pain rule out ACS Recommendations: Clinical picture mostly looks like fluid overload from acute CHF exacerbation with leg edema and pulmonary edema. Continue Lasix Elevate legs Fluid restriction Follow blood cultures Continue current antibiotics Continue wound care Antibiotic status: Vancomycin IV [Started on 06/16] Ceftriaxone IV [Started on 06/16] 06/16, Extremity Venous study showed No right or left deep venous thrombosis. 06/16, Blood culture showed no growth 06/16, Influenza Type A Ag, Type B Ag and COVID-19 came back negative. 06/15, Reviewed Foot CT S/P great toe amputation and leg edema. Personally reviewed Chest x-ray which showed pulmonary edema Thank you for consult. Plan discussed with: Patient MIGUEL WESLEY MD Jun 16, 2024 21:25
--- NOTE | 2024-06-16 23:34 | DVHINCON2 ---
DATE OF CONSULTATION: 06/16/2024 REFERRING PHYSICIAN: Dr. Christophe Panchal. CONSULTING PHYSICIAN: Dr. Lei. INDICATION: Shortness of breath. HISTORY OF PRESENT ILLNESS: The patient is a 68-year-old female with history of coronary artery disease, status post angioplasty with stent placement in 2021, details not available, history of CHF, hypertension, history of aortic stenosis, presented to the hospital with complaints of worsening shortness of breath and lower extremity edema. The patient also stated that she was having some wound on her foot, had recently underwent a toe amputation. The patient was also complaining of occasional cough and orthopnea. Denies any palpitation. The patient's troponin was noted to be mildly elevated, which has been trending down. She is currently denying any chest pain. PAST MEDICAL HISTORY: * History of CAD, status post angioplasty. * CHF. * Hypertension. * CKD. * Aortic stenosis. * Diabetes. * Diabetic foot ulcer. MEDICATIONS: Per med rec. ALLERGIES: BRILINTA. PHYSICAL EXAMINATION: GENERAL: Alert and awake, in no form of cardiopulmonary distress. VITAL SIGNS: Blood pressure 135/59, pulse 92 per minute, saturation 98%. HEENT: No carotid bruits. No jugular venous distention. CHEST: Bilateral air entry. CARDIOVASCULAR: Precordial and carotid pulses palpable. Normal S1, S2. EXTREMITIES: Bilateral edema. DIAGNOSTIC DATA: Troponin, first set 36, second set 53, third set is 47. Sodium 135, potassium 3.8, creatinine is 1.15. White count 15, hemoglobin 8.8, platelet is 236. ASSESSMENT: * Decompensated heart failure. * Elevated troponin, likely secondary to above. * Diabetic foot ulcer. * Cellulitis. * History of coronary artery disease, status post angioplasty. * Chronic kidney disease. RECOMMENDATIONS: * Agree with diuresis. * Continue with IV Lasix. * Monitor input and output closely. * Monitor electrolytes and renal function closely. * Continue IV antibiotics. * Continue aspirin and statin therapy. * Obtain echo. * Continue youth nutritional monitor. Thank you for allowing me to partake in the care of this patient. Lissa Lei MD LB/HEM/MIRNA TID: [id number] RECEIPT: [id number]
[2024-06-17] VITALS (9 sets, daily range): BP systolic 115–151; BP diastolic 47–67; PULSE 84–103; RESP 18–20; TEMP 97.5–98.8; O2SAT 92–98
[2024-06-17] MEDS: VANCOMYCIN 1GM/250ML KIT 250 ML IV SCH (04:28)
[2024-06-17] MEDS ORDERED: BRIM0.2S17 EACHEYE (05:25)
[2024-06-17] MEDS ORDERED: LATA0.008 EACHEYE (05:25)
[2024-06-17 06:38] LABS: Chloride 98 mmol/L (98-107); Potassium 3.7 mmol/L (3.5-5.1)
[2024-06-17 06:40] LABS: Sodium 133 mmol/L (136-145)
[2024-06-17 06:41] LABS: Anion Gap 9 (5-15); Carbon Dioxide 26 mmol/L (20-31)
[2024-06-17 06:44] LABS: BUN/Creatinine Ratio 20.6 (10.0-20.0)
[2024-06-17 06:48] LABS: Blood Urea Nitrogen 27 mg/dL (9-23); Glucose 245 mg/dL (74-106)
[2024-06-17 06:51] LABS: Basophils # (auto) 0 10 ^3/uL (0-0.2); Basophils % (auto) 0.2 % (0.0-2.0); Eosinophils # (auto) 0.2 10 ^3/uL (0-0.8); Eosinophils % (auto) 1.8 % (0.0-7.0); Hematocrit 25.2 % (36.0-46.0); Hemoglobin 8.5 g/dL (12.2-16.2); Lymphocytes # (auto) 0.9 10 ^3/uL (0.4-5.4); Lymphocytes % (auto) 7.5 % (10.0-50.0); Mean Corpuscular Hemoglobin 31.1 pg (28.0-32.0); Mean Corpuscular Hgb Conc. 33.7 g/dL (32.0-36.0); Mean Corpuscular Volume 92.2 fL (80.0-100.0); Monocytes % (auto) 8.8 % (0.0-12.0); Neutrophils # (auto) 9.4 10 ^3/uL (1.6-8.6); Neutrophils % (auto) 81.7 % (37.0-80.0); Nucleated Red Blood Cells % 0.1 %; Platelet Count (auto) 226 10^3/uL (140-450); Red Blood Cells 2.73 10^6/uL (4.0-5.20); Red Cell Distribution Width 16.8 % (11.8-14.3); White Blood Cell 11.5 10^3/uL (4.4-10.8)
--- NOTE | 2024-06-17 11:04 | DVHPN2 ---
Progress Note - Dictate Date Seen: Jun 17, 2024 Medical Necessity Reason Pt with a Central, PICC or Fol: No Subjective Patient is clinically feeling better. vital signs Vital Sign Date Time Temp Pulse Resp B/P (MAP) Pulse Ox O2 Delivery O2 Flow Rate FiO2 06/17/24 10:03 133/73 06/17/24 10:02 87 06/17/24 09:13 98.1 19 98 98.1 06/16/24 20:00 Nasal Cannula* 2 28 Total Intake and Output 06/16/24 06/16/24 06/17/24 15:00 23:00 07:00 Intake Total 0 ml 450 ml Output Total 250 ml Balance 0 ml 200 ml medications Current Medications Medications Dose Ordered Sig/Fela Route Start Time Stop Time Status Last Admin Dose Admin Nitroglycerin 0.4 mg Q5MINP PRN SL 06/15/24 23:15 Morphine Sulfate 2 mg Q30M PRN IV 06/15/24 23:15 Levothyroxine Sodium 175 mcg DAILY PO 06/16/24 07:00 06/17/24 10:01 175 MCG Ondansetron HCl 4 mg Q6HPRN PRN IV 06/15/24 23:15 Aspirin 81 mg DAILY PO 06/16/24 10:00 06/17/24 10:02 81 MG Atorvastatin Calcium 40 mg HS PO 06/16/24 22:00 06/16/24 21:16 40 MG Enoxaparin Sodium 40 mg DAILY SC 06/16/24 10:00 06/17/24 10:11 40 MG Acetaminophen/ Hydrocodone Bitart 1 tab Q6HPRN PRN PO 06/15/24 23:15 Famotidine 20 mg BID PO 06/16/24 10:00 06/17/24 10:11 20 MG Acetaminophen 650 mg Q6HPRN PRN PO 06/15/24 23:15 Furosemide 40 mg BID IV 06/16/24 10:00 06/17/24 10:03 40 MG Diagnostic Test (Pha) 1 strip ACHS 06/16/24 07:00 06/17/24 06:33 1 STRIP Insulin Human Regular ACHS SC 06/16/24 07:00 06/17/24 06:33 6 UNITS Dextrose 50 ml UD PRN IV 06/16/24 01:15 Vancomycin HCl 0 ml @ 0 mls/hr UD IV 06/16/24 01:15 Ceftriaxone Sodium 50 ml @ 100 mls/hr DAILY@2100 IV 06/16/24 21:00 06/16/24 21:02 100 MLS/HR Losartan Potassium 50 mg DAILY PO 06/16/24 10:00 06/17/24 10:02 50 MG Metoprolol Tartrate 25 mg BID PO 06/16/24 10:00 06/17/24 10:02 25 MG Vancomycin HCl 250 ml @ 250 mls/hr DAILY@0500 IV 06/17/24 05:00 06/17/24 04:28 250 MLS/HR objective General Appearance: Well developed, Well nourished Head Exam: Normal inspection Neck Exam: Normal inspection, Non-tender, Normal alignment Eye Exam: bilateral eye Normal inspection, bilateral eye PERRL, bilateral eye EOMI Ear Exam: bilateral ear Auricle normal Nasal Exam: Normal inspection Mouth: Normal Inspection Pulmonary/Respiratory: Normal inspection, Chest non-tender, Crackles Cardiovascular/Chest: Normal inspection, Edema (bilateral lower extremity), Regular rate, Normal Rhythm Abdominal Exam: Normal bowel sounds, Soft Legs: bilateral leg swelling (+3 pitting edema) Foot: Bilateral foot swelling; left foot other (greater toe amputation) 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, Normal speech, PERRL Neuro/Mental St: Alert, Oriented Skin Exam: Normal inspection, Other (right heel ulcer, left greater toe s/p amputation with wound) laboratory and microbiology Laboratory Tests 06/17/24 05:51 Test 06/17/24 05:51 Range/Units Serum Glucose 245 H 74-106 mg/dL Assessment/Plan Patient is a 68-year-old female presents to the hospital with: Fluid overload Acute CHF exacerbation Chronic venous stasis Right foot diabetic ulcer Hypoxia Pulmonary edema Status post right greater toe amputation with wound DM2 CKD stage III Chest pain rule out ACS Recommendations: Clinical picture mostly looks like fluid overload from acute CHF exacerbation with leg edema and pulmonary edema. Continue Lasix Elevate legs Fluid restriction Follow blood cultures Continue current antibiotics Continue wound care Antibiotic status: Vancomycin IV [Started on 06/16] Ceftriaxone IV [Started on 06/16] 06/16, Extremity Venous study showed No right or left deep venous thrombosis. 06/16, Blood culture showed no growth 06/16, Influenza Type A Ag, Type B Ag and COVID-19 came back negative. 06/15, Reviewed Foot CT S/P great toe amputation and leg edema. Personally reviewed Chest x-ray which showed pulmonary edema Thank you for consult. Plan discussed with: Patient MIGUEL WESLEY MD Jun 17, 2024 11:03
[2024-06-17] MEDS ORDERED: LOS25T PO (16:24)
[2024-06-17] MEDS ORDERED: CEFD300C2 PO (16:24)
[2024-06-17] MEDS ORDERED: IPRA0.00 NEB (16:24)
[2024-06-17] MEDS ORDERED: FURO40TA4 PO (16:24)
--- NOTE | 2024-06-17 16:27 | DVHPN2 ---
Progress Note - Dictate Date Seen: Jun 17, 2024 Medical Necessity Reason Pt with a Central, PICC or Fol: No Subjective Clinically feeling better. Patient apparently drinks 3-4 L of liquids daily at home. Patient counseled and educated regarding her heart failure and limiting oral fluids to 1.5 L per day. vital signs Vital Sign Date Time Temp Pulse Resp B/P (MAP) Pulse Ox O2 Delivery O2 Flow Rate FiO2 06/17/24 12:45 98.8 91 18 139/67 (91) 96 98.8 06/17/24 08:00 Nasal Cannula* 2 28 Total Intake and Output 06/16/24 06/16/24 06/17/24 15:00 23:00 07:00 Intake Total 0 ml 450 ml Output Total 250 ml Balance 0 ml 200 ml medications Current Medications Medications Dose Ordered Sig/Fela Route Start Time Stop Time Status Last Admin Dose Admin Nitroglycerin 0.4 mg Q5MINP PRN SL 06/15/24 23:15 Morphine Sulfate 2 mg Q30M PRN IV 06/15/24 23:15 Levothyroxine Sodium 175 mcg DAILY PO 06/16/24 07:00 06/17/24 10:01 175 MCG Ondansetron HCl 4 mg Q6HPRN PRN IV 06/15/24 23:15 Aspirin 81 mg DAILY PO 06/16/24 10:00 06/17/24 10:02 81 MG Atorvastatin Calcium 40 mg HS PO 06/16/24 22:00 06/16/24 21:16 40 MG Enoxaparin Sodium 40 mg DAILY SC 06/16/24 10:00 06/17/24 10:11 40 MG Acetaminophen/ Hydrocodone Bitart 1 tab Q6HPRN PRN PO 06/15/24 23:15 Famotidine 20 mg BID PO 06/16/24 10:00 06/17/24 10:11 20 MG Acetaminophen 650 mg Q6HPRN PRN PO 06/15/24 23:15 Furosemide 40 mg BID IV 06/16/24 10:00 06/17/24 10:03 40 MG Diagnostic Test (Pha) 1 strip ACHS 06/16/24 07:00 06/17/24 11:30 1 STRIP Insulin Human Regular ACHS SC 06/16/24 07:00 06/17/24 11:30 8 UNITS Dextrose 50 ml UD PRN IV 06/16/24 01:15 Vancomycin HCl 0 ml @ 0 mls/hr UD IV 06/16/24 01:15 Ceftriaxone Sodium 50 ml @ 100 mls/hr DAILY@2100 IV 06/16/24 21:00 06/16/24 21:02 100 MLS/HR Losartan Potassium 50 mg DAILY PO 06/16/24 10:00 06/17/24 10:02 50 MG Metoprolol Tartrate 25 mg BID PO 06/16/24 10:00 06/17/24 10:02 25 MG Vancomycin HCl 250 ml @ 250 mls/hr DAILY@0500 IV 06/17/24 05:00 06/17/24 04:28 250 MLS/HR objective Obese female comfortable in bed. Family at bedside. HEENT neck supple no JVD. Heart regular rate and rhythm S1-S2. Lungs fair air movement with a degraded breath sounds in the bases. No wheezing or rales. Abdomen obese soft nontender positive bowel sounds. Extremities improving edema. Positive pulses. laboratory and microbiology Laboratory Tests 06/17/24 05:51 Test 06/17/24 05:51 Range/Units Serum Glucose 245 H 74-106 mg/dL Assessment/Plan Urinalysis shows mild UTI. We will continue antibiotics. Patient's Lasix will be increased to twice a day at home. Advised patient to limit her fluid intake to 1.5 L daily. She was advised to check her weights daily and if she gains more than 2-3 lb in a week to take extra dose of Lasix and cut down her fluid intake and notify her physician. Otherwise overall given patient clinically stable I have encouraged her to ambulate and if she feels better can be discharged home later on today either with or without oxygen. Patient to resume her home health for diabetic wound care as she was getting after discharge. Discussed with the patient as well as nurse at bedside regarding her care plan and heart failure diagnosis and instructions Problems(with codes): (1) Chest pain (2) CHF (congestive heart failure) (3) Ulcer of right heel Plan discussed with: Patient, Other SANGEETHA WHALEN MD Jun 17, 2024 16:27
[2024-06-18] VITALS (8 sets, daily range): BP systolic 138–159; BP diastolic 62–76; PULSE 81–99; RESP 16–18; TEMP 97.3–98.1; O2SAT 90–98
[2024-06-18 07:11] LABS: Basophils # (auto) 0 10 ^3/uL (0-0.2); Basophils % (auto) 0.1 % (0.0-2.0); Eosinophils # (auto) 0.2 10 ^3/uL (0-0.8); Eosinophils % (auto) 2.2 % (0.0-7.0); Hematocrit 26.6 % (36.0-46.0); Hemoglobin 8.8 g/dL (12.2-16.2); Lymphocytes # (auto) 0.7 10 ^3/uL (0.4-5.4); Lymphocytes % (auto) 8.4 % (10.0-50.0); Mean Corpuscular Hemoglobin 30.4 pg (28.0-32.0); Mean Corpuscular Hgb Conc. 33.2 g/dL (32.0-36.0); Mean Corpuscular Volume 91.8 fL (80.0-100.0); Monocytes # (auto) 0.8 10 ^3/uL (0-1.3); Neutrophils # (auto) 6.8 10 ^3/uL (1.6-8.6); Neutrophils % (auto) 80.3 % (37.0-80.0); Nucleated Red Blood Cells % 0.2 %; Platelet Count (auto) 299 10^3/uL (140-450); Red Cell Distribution Width 16.8 % (11.8-14.3); White Blood Cell 8.5 10^3/uL (4.4-10.8)
[2024-06-18 07:17] LABS: Chloride 100 mmol/L (98-107); Potassium 3.5 mmol/L (3.5-5.1); Sodium 137 mmol/L (136-145)
[2024-06-18 07:18] LABS: Anion Gap 10 (5-15); Calcium 9.4 mg/dL (8.7-10.4); Carbon Dioxide 27 mmol/L (20-31)
[2024-06-18 07:23] LABS: Blood Urea Nitrogen 28 mg/dL (9-23); Glucose 241 mg/dL (74-106)
--- NOTE | 2024-06-18 11:59 | DVHPN2 ---
Progress Note - Dictate Date Seen: Jun 18, 2024 Medical Necessity Reason Pt with a Central, PICC or Fol: No Subjective Patient is clinically feeling better. vital signs Vital Sign Date Time Temp Pulse Resp B/P (MAP) Pulse Ox O2 Delivery O2 Flow Rate FiO2 06/18/24 10:30 98 18 98 Nasal Cannula* 2 28 06/18/24 10:09 156/76 06/18/24 09:00 97.5 97.5 Total Intake and Output 06/17/24 06/17/24 06/18/24 15:00 23:00 07:00 Intake Total 800 ml 400 ml Output Total 800 ml 300 ml Balance 0 ml 100 ml medications Current Medications Medications Dose Ordered Sig/Fela Route Start Time Stop Time Status Last Admin Dose Admin Nitroglycerin 0.4 mg Q5MINP PRN SL 06/15/24 23:15 Morphine Sulfate 2 mg Q30M PRN IV 06/15/24 23:15 Levothyroxine Sodium 175 mcg DAILY PO 06/16/24 07:00 06/18/24 10:10 175 MCG Ondansetron HCl 4 mg Q6HPRN PRN IV 06/15/24 23:15 Aspirin 81 mg DAILY PO 06/16/24 10:00 06/18/24 10:11 81 MG Atorvastatin Calcium 40 mg HS PO 06/16/24 22:00 06/17/24 20:56 40 MG Enoxaparin Sodium 40 mg DAILY SC 06/16/24 10:00 06/18/24 10:11 40 MG Acetaminophen/ Hydrocodone Bitart 1 tab Q6HPRN PRN PO 06/15/24 23:15 Famotidine 20 mg BID PO 06/16/24 10:00 06/18/24 10:10 20 MG Acetaminophen 650 mg Q6HPRN PRN PO 06/15/24 23:15 Furosemide 40 mg BID IV 06/16/24 10:00 06/18/24 10:08 40 MG Diagnostic Test (Pha) 1 strip ACHS 06/16/24 07:00 06/18/24 11:35 1 STRIP Insulin Human Regular ACHS SC 06/16/24 07:00 06/18/24 11:35 6 UNITS Dextrose 50 ml UD PRN IV 06/16/24 01:15 Vancomycin HCl 0 ml @ 0 mls/hr UD IV 06/16/24 01:15 Ceftriaxone Sodium 50 ml @ 100 mls/hr DAILY@2100 IV 06/16/24 21:00 06/17/24 20:58 100 MLS/HR Losartan Potassium 50 mg DAILY PO 06/16/24 10:00 06/18/24 10:09 50 MG Metoprolol Tartrate 25 mg BID PO 06/16/24 10:00 06/18/24 10:09 25 MG Vancomycin HCl 250 ml @ 250 mls/hr DAILY@0500 IV 06/17/24 05:00 06/18/24 05:19 250 MLS/HR objective General Appearance: Well developed, Well nourished Head Exam: Normal inspection Neck Exam: Normal inspection, Non-tender, Normal alignment Eye Exam: bilateral eye Normal inspection, bilateral eye PERRL, bilateral eye EOMI Ear Exam: bilateral ear Auricle normal Nasal Exam: Normal inspection Mouth: Normal Inspection Pulmonary/Respiratory: Normal inspection, Chest non-tender, Crackles Cardiovascular/Chest: Normal inspection, Edema (bilateral lower extremity), Regular rate, Normal Rhythm Abdominal Exam: Normal bowel sounds, Soft Legs: bilateral leg swelling (+3 pitting edema) Foot: Bilateral foot swelling; left foot other (greater toe amputation) 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, Normal speech, PERRL Neuro/Mental St: Alert, Oriented Skin Exam: Normal inspection, Other (right heel ulcer, left greater toe s/p amputation with wound) laboratory and microbiology Laboratory Tests 06/18/24 06:05 Test 06/18/24 06:05 Range/Units Serum Glucose 241 H 74-106 mg/dL Assessment/Plan Patient is a 68-year-old female presents to the hospital with: Fluid overload Acute CHF exacerbation Chronic venous stasis Right foot diabetic ulcer Hypoxia Pulmonary edema Status post right greater toe amputation with wound DM2 CKD stage III Chest pain rule out ACS Recommendations: Clinical picture mostly looks like fluid overload from acute CHF exacerbation with leg edema and pulmonary edema. Continue Lasix Elevate legs Fluid restriction Follow blood cultures Continue current antibiotics Continue wound care Antibiotic status: Vancomycin IV [Started on 06/16] Ceftriaxone IV [Started on 06/16] 06/16, Extremity Venous study showed No right or left deep venous thrombosis. 06/16, Blood culture showed no growth 06/16, Influenza Type A Ag, Type B Ag and COVID-19 came back negative. 06/15, Reviewed Foot CT S/P great toe amputation and leg edema. Personally reviewed Chest x-ray which showed pulmonary edema Thank you for consult. Dietary Evaluation Review Comments: 1) Consider CCHO60 + cardiac diet 2) refer CDE on DC 3) Continue current plan of care Expected Outcomes/Goals: Glucose under control Fu 3-5 days MIGUEL WESLEY MD Jun 18, 2024 11:59
--- NOTE | 2024-06-18 17:16 | DVHDS2 ---
Discharge Summary Date of Admission Jun 15, 2024 at 23:03 Date of Discharge: Jun 17, 2024 Labs/Diagnostic Data: Laboratory Results Test 06/18/24 16:43 06/18/24 06:05 06/16/24 17:25 06/16/24 02:30 POC Glucose 252 mg/dl (70-106) White Blood Count 8.5 10^3/uL (4.4-10.8) Red Blood Count 2.90 10^6/uL (4.0-5.20) Hemoglobin 8.8 g/dL (12.2-16.2) Hematocrit 26.6 % (36.0-46.0) Mean Corpuscular Volume 91.8 fL (80.0-100.0) Mean Corpuscular Hemoglobin 30.4 pg (28.0-32.0) Mean Corpuscular Hemoglobin Concent 33.2 g/dL (32.0-36.0) Red Cell Distribution Width 16.8 % (11.8-14.3) Platelet Count 299 10^3/uL (140-450) Mean Platelet Volume 8.5 fL (6.9-10.8) Neutrophils (%) (Auto) 80.3 % (37.0-80.0) Lymphocytes (%) (Auto) 8.4 % (10.0-50.0) Monocytes (%) (Auto) 9.0 % (0.0-12.0) Eosinophils (%) (Auto) 2.2 % (0.0-7.0) Basophils (%) (Auto) 0.1 % (0.0-2.0) Neutrophils # (Auto) 6.8 10 ^3/uL (1.6-8.6) Lymphocytes # (Auto) 0.7 10 ^3/uL (0.4-5.4) Monocytes # (Auto) 0.8 10 ^3/uL (0-1.3) Eosinophils # (Auto) 0.2 10 ^3/uL (0-0.8) Basophils # (Auto) 0 10 ^3/uL (0-0.2) Nucleated Red Blood Cells 0.2 % Sodium Level 137 mmol/L (136-145) Potassium Level 3.5 mmol/L (3.5-5.1) Chloride Level 100 mmol/L (98-107) Carbon Dioxide Level 27 mmol/L (20-31) Anion Gap 10 (5-15) Blood Urea Nitrogen 28 mg/dL (9-23) Creatinine 1.12 mg/dL (0.550-1.02) Glomerular Filtration Rate Calc 53 mL/min (>90) BUN/Creatinine Ratio 25.0 (10.0-20.0) Serum Glucose 241 mg/dL (74-106) Calcium Level 9.4 mg/dL (8.7-10.4) Troponin I High Sensitivity 47 ng/L (</=34) Lactic Acid Level 2.0 mmol/L (0.4-2.0) Test 06/16/24 01:35 06/16/24 00:32 06/15/24 21:00 06/15/24 20:34 Urine Color Colorless (Yellow) Urine Clarity Turbid (Clear) Urine pH 5.5 (5.0-9.0) Urine Specific Harvest 1.012 (1.001-1.035) Urine Protein 1+ (Negative) Urine Ketones Negative (Negative) Urine Blood Trace /uL (Negative) Urine Nitrite Negative (Negative) Urine Bilirubin Negative (Negative) Urine Urobilinogen Normal mg/dL (Negative) Urine Leukocyte Esterase 2+ /uL (Negative) Urine RBC 2 /hpf (0 - 4) Urine WBC Clumps Present /hpf (None Seen) Urine Microscopic WBC 60 /HPF (0-5) Urine Squamous Epithelial Cells Few /hpf (<5) Urine Bacteria Many /hpf (None Seen) Urine Mucus Few (None Seen) Urine Glucose Normal mg/dL (Normal) Influenza Type A Antigen Negative (Negative) Influenza Type B Antigen Negative (Negative) SARS-CoV-2 Antigen (Rapid) Negative (NEGATIVE) Prothrombin Time 10.7 sec (9.3-11.8) Prothrombin Time INR 1.01 (0.9-1.15) D-Dimer, Quantitative 0.35 mg/L FEU (0.0-0.49) Blood Gas Specimen Type Arterial Blood Gas Sample Site Right radial Blood Gas Patient Temperature 37.0 Arterial Blood Date Drawn [id number] Arterial Blood pH 7.487 (7.350-7.450) Arterial Blood Partial Pressure CO2 33.7 mmHg (32.0-45.0) Arterial Blood Partial Pressure O2 57.9 mmHg (83.0-108.0) Arterial Blood HCO3 24.9 mmol/L (21.0-28.0) Arterial Blood Oxygen Saturation 89.6 % (94.0-98.0) Arterial Blood Base Excess 1.8 mmol/L (-2.0-3.0) Arterial Blood Oxyhemoglobin 88.5 % (94.0-98.0) Arterial Blood Carboxyhemoglobin 0.7 % (0.5-1.5) Arterial Blood Methemoglobin 0.5 % (0.0-1.5) Vidal Test Modified Blood Gas Total Hemoglobin 10.70 g/dL (12.0-16.0) Blood Gas Modality Room air FiO2 % 21.0 Test 06/15/24 19:24 Total Bilirubin 0.7 mg/dL (0.2-1.0) Aspartate Amino Transferase (AST) 18 U/L (13-40) Alanine Aminotransferase (ALT) 20 U/L (7-40) Alkaline Phosphatase 80 U/L (46-116) B-Type Natriuretic Peptide 238.87 pg/mL (0-100) Total Protein 7.3 g/dL (5.7-8.2) Albumin 4.6 g/dL (3.2-4.8) Other Laboratory Tests 06/18/24 06:05 Brief Hx & Hospital Course: Mrs. Joann Galvan is a 68 y.o female accompanied by family member, with a history of DM, CHF, CKD stage III, Hyperlipidemia, Thyroid disease who presents with a chief complaint of SOB x 2 days associated with chest pain onset yesterday morning. Patient was seen at urgent care earlier today for her symptoms and was sent to the ED for further evaluation. Patient also reports right heel ulcer and recent left greater toe amputation by Dr. Simeon , with possible wound infection. Patient reports midsternal chest pain with associated exertional dyspnea, and bilateral lower extremity swelling. Patient denies fevers, chills, palpitations, headaches, dizziness. Patient with a heart score of 6. Patient admitted for further evaluation. She is admitted and evaluated by Infectious Disease. Patient received empiric antibiotics for her chronic diabetic foot wounds. CT did not show any acute evidence of osteomyelitis or abscess. Patient is receiving already home care for her diabetic foot infections prior to this admission. While in the hospital patient noted to be in acute exacerbation underlying heart failure. Therefore she received IV diuresis and significantly improved. Patient counseled during this hospitalization on multiple occasions regarding her excessive oral fluid intake and advised to limit fluid intake to 1.5 L per 24 hours. Patient is also advised to take the diuretics as prescribed and to check her weight daily given her heart failure. Patient underwent heart failure counseling and education by nurse as well. Otherwise overall patient is clinically feeling better. She is getting out of bed ambulating however with ambulation or oxygenation is dropping below 89 person. Therefore it is felt 2 L home oxygen is appropriate for her given her morbid obesity with hypoventilation and heart failure. Otherwise overall patient is clinically stable having had necessary workup and evaluations and feeling better it is felt she could be safely discharged home. Patient did resume her home health. Patient is also prescribed home health nurse for home med nebulizer, heart failure teaching and med compliance at home. I have talked with the patient and her family at bedside regarding her hospital diagnosis, treatment she received, discharge medications, discharge instructions and follow-up plan of care. They have verbalized understanding of these and agree with the discharge care plan as mentioned. Consults/Reason for consult Assessment Patient is a 68-year-old female presents to the hospital with: Fluid overload Acute CHF exacerbation Chronic venous stasis Right foot diabetic ulcer Hypoxia Pulmonary edema Status post right greater toe amputation with wound DM2 CKD stage III Chest pain rule out ACS Recommendations: Clinical picture mostly looks like fluid overload from acute CHF exacerbation with leg edema and pulmonary edema. Continue Lasix Elevate legs Fluid restriction Follow blood cultures Continue current antibiotics Continue wound care Antibiotic status: Vancomycin IV [Started on 06/16] Ceftriaxone IV [Started on 06/16] 06/16, Extremity Venous study showed No right or left deep venous thrombosis. 06/16, Blood culture showed no growth 06/16, Influenza Type A Ag, Type B Ag and COVID-19 came back negative. 06/15, Reviewed Foot CT S/P great toe amputation and leg edema. Personally reviewed Chest x-ray which showed pulmonary edema Thank you for consult. Plan discussed with: Patient MIGUEL WESLEY MD Jun 16, 2024 21:25 Condition at Discharge: Stable Final Diagnosis/Problems List Acute on chronic congestive heart failure with a diastolic dysfunction, poorly controlled Diabtes mellitus type 2 Secondary Diagnosis: Acute on chronic hypoxic respiratory failure now on 2 L home oxygen via nasal cannula Discharge Disposition: Home Discharge Instruct/Medications Diet: Consistent carbohydrate, Cardiac 2g Na,low cholest Diet comment: Restrict/limit your total oral fluid intake to 1.5 L per day due to your heart failure. Activity: No Restrictions, As Tolerated Follow Up/Referral: Primary care physician next week for heart failure management and evaluation of fever leg swelling/shortness for breath Medications: As prescribed and use breathing treatments via nebulizer as prescribed. New Medications: Cefdinir (Cefdinir) 300 Mg Cap 1 CAP PO BID, #14 CAP Furosemide (Furosemide) 40 Mg Tab 1 TAB PO BID, #30 TAB 1 Refill Ipratropium-Albuterol (Ipratropium [place]/Albut) 1 Kleber Kleber 1 KLEBER NEB BID, #30 EA Losartan Potassium (Losartan Potassium) 25 Mg Tab 25 MG PO BID, #60 TAB Continued Medications: Brimonidine Tartrate (Brimonidine Tartrate) 0.2 % Kleber 1 DROP EACHEYE BID, #10 ML 3 Refills Latanoprost (Latanoprost) 0.005 % Kleber 1 DROP EACHEYE QPM, #2.5 ML 6 Refills Discharge Statement: "Patient was advised to return to the ER or call 911 if any headaches, dizziness, shortness of breath, chest pain, abdominal pain, bleeding, fevers, or worsening of medical condition. Patient was counseled about treatment plan, medications, possible side effects, patientverbalized understanding. All questions were answered to the best of my ability. This discharge took greater then 30 minutes in planning, reviewing documentation, counseling the patient, and discussing with other team members." ASSESSMENT ASSESSMENT Assessment Acute on chronic congestive heart failure with a diastolic dysfunction, poorly controlled Diabtes mellitus type 2 SANGEETHA WHALEN MD Jun 18, 2024 17:16
--- NOTE | 2024-06-19 17:18 | DVHSR ---
APPROVED REPORT EXAM: Two-dimensional and M-mode echocardiogram with Doppler and color Doppler. Blood Pressure: 125/66 mmHg INDICATION chf RISK FACTORS Obesity: Height: 4'11, Weight: 230 DIMENSIONS LVDd5.4 (3.8-5.7cm)LA (2D)5.2 (1.9-4.0cm)Aortic Root2.7 (2.0-3.7cm) LVDs4.0 (2.5-4.0cm)LA (MM) (1.9-4.0cm)Aortic Cusp Exc1.2 (1.5-2.0cm) EF (%) 50.0 (55-70%)Rt. Atrium3.9 (1.9-4.0cm)Asc. Aorta2.6 cm IVSd0.9 (0.7-1.1cm)RV (D)3.7 (1.8-2.4cm) PWd0.8 (0.7-1.1cm) Mitral Valve MitralMitral Stenosis E wavem/sMV Mean GR.8mmHg A wavem/sMV Peak GR.76mmHg E/A ratio0.02D MVAcm2 Aortic Valve Aortic ValveAortic Stenosis V10.75m/Beny Mean GR.9mmHg V21.93m/Beny Peak GR.15mmHg LVOT Diameter1.9 (1.8-2.4cm)Doppler AVA1.10cm2 Pulmonic Valve V21.04m/s Tricuspid Valve TR Velocity3.41m/s BEHT38mhVm Other Information Quality : Technically LimitedRhythm : Technically limited study due to patient moving. Conclusion Technically good study. Sinus rhythm. Enlarged left ventricle. Left atrial enlargement. Moderate mitral annular calcification. Calcification of the base of the posterior mitral leaflet and the tips of the anterior and posterior mitral leaflet with adequate excursion and without mitral amy nosis. Mild aortic sclerosis. Left ventricular systolic performance is diminished. EF is approximately 25% with moderate to severe global hypokinesis. Predominant inferobasal hypokinesis to akinesis. RV function is normal. There is mild mitral insufficiency. Mild aliasing across the mitral valve however no significant amy nosis present. A peak gradient of 15 mmHg across the aortic valve indicates mild sclerosis without s tenosis. No pericardial effusion masses or vegetations.
== END 2024-06-18 23:19 | disposition home health service (06) | DRG 291 ==
LOC: ER 18:42 → OVERFLOW 23:03 → TELE-WESTW 06-16 17:56
PROVIDERS: ADMIT Nurse Practitioner Family; ATTEND Nurse Practitioner Family
DX: I13.0 Hypertensive heart and chronic kidney disease with heart failure and stage 1 through stage 4 chronic kidney disease, or unspecified chronic kidney disease (principal); I50.33 Acute on chronic diastolic (congestive) heart failure; J96.21 Acute and chronic respiratory failure with hypoxia; J18.9 Pneumonia, unspecified organism; L97.419 Non-pressure chronic ulcer of right heel and midfoot with unspecified severity; N39.0 Urinary tract infection, site not specified; E66.2 Morbid (severe) obesity with alveolar hypoventilation; L03.818 Cellulitis of other sites; Z68.42 Body mass index [BMI] 45.0-49.9, adult; Z20.822 Contact with and (suspected) exposure to COVID-19; E11.621 Type 2 diabetes mellitus with foot ulcer; L97.519 Non-pressure chronic ulcer of other part of right foot with unspecified severity; N18.30 Chronic kidney disease, stage 3 unspecified; E78.5 Hyperlipidemia, unspecified; E11.22 Type 2 diabetes mellitus with diabetic chronic kidney disease; I87.8 Other specified disorders of veins; I25.10 Atherosclerotic heart disease of native coronary artery without angina pectoris; E03.9 Hypothyroidism, unspecified; Z99.81 Dependence on supplemental oxygen; Z89.412 Acquired absence of left great toe; Z88.8 Allergy status to other drugs, medicaments and biological substances; Z79.2 Long term (current) use of antibiotics; Z79.4 Long term (current) use of insulin; Z79.84 Long term (current) use of oral hypoglycemic drugs; Z98.61 Coronary angioplasty status
CPT/HCPCS: 36415; 36600; 71045; 73700; 80048; 80053; 81001; 82805; 82962; 83605; 83880; 84484; 85025; 85379; 85610; 87040; 87426; 87804; 93005; 93306; 93970; 99291; G0378; J1815

== ENCOUNTER 2024-07-21 13:49 | Emergency (ER) | payer OTHER, MEDICAID ==
[~2024-07-21] VITALS: Ht 149.9 cm; Wt 103.0 kg
[~2024-07-21 13:49] MED LIST changes: +BRIM0.2S17 EACHEYE; +CEFD300C2 PO; +FURO40TA4 PO; +IPRA0.00 NEB; +LATA0.008 EACHEYE; +LOS25T PO
--- NOTE | 2024-07-21 14:24 | ED.PDOC ---
History of Present Illness HPI Comments 68 year old female presents to the ED with a chief complaint of bilateral leg swelling onset few days. PMHx CHF, CKF, DM. She was discharged from [facility] about 1 month ago, was admitted for CHF exacerbation. Patient noticed bilateral legs are swelling, has been taking Lasix with no improvement, is on 2L O2 at home. She is currently experiencing chest discomfort described as a pressure sensation. Denies dizziness, headache, nausea, vomiting, diarrhea, abdominal pain, cough, fever, chills. No other symptoms or modifying factors present at this time. Time Seen by MD: 14:18 Reviewed Notes: Medications, Allergies Allergies: Uncoded Allergies: BERLINTA (Allergy, Unknown, 06/15/24) Home Meds Active Scripts Ipratropium-Albuterol (Ipratropium [place]/Albut) 1 Eliana Eliana, 1 ELIANA NEB BID, #30 EA Prov:SANGEETHA WHALEN MD 06/17/24 Cefdinir (Cefdinir) 300 Mg Cap, 1 CAP PO BID, #14 CAP Prov:SANGEETHA WHALEN MD 06/17/24 Losartan Potassium (Losartan Potassium) 25 Mg Tab, 25 MG PO BID, #60 TAB Prov:SANGEETHA WHALEN MD 06/17/24 Furosemide (Furosemide) 40 Mg Tab, 1 TAB PO BID, #30 TAB 1 Refill Prov:SANGEETHA WHALEN MD 06/17/24 Reported Medications Levothyroxine Sodium (Levothyroxine Sodium) 175 Mcg Tab, 1 TAB PO DAILY for 100 Days, #100 06/17/24 Glipizide (Glipizide) 10 Mg Tab, 1 TAB PO BID for 100 Days, #200 06/17/24 Insulin NPH Isophane & Reg (Hu (Humulin 70/30 Kwikpen (70-30) 100 Unit/ml) 1 Inj Inj, 65 UNITS SC QPM for 36 Days, #45 06/17/24 Insulin NPH Isophane & Reg (Hu (Humulin 70/30 Kwikpen (70-30) 100 Unit/ml) 1 Inj Inj, 60 UNITS SC QAM for 36 Days, #45 06/17/24 Atorvastatin Calcium (Lipitor) 40 Mg Tab, 1 TAB PO DAILY for 100 Days, #100 06/17/24 Spironolactone (Spironolactone) 25 Mg Tab, 1 TAB PO DAILY for 100 Days 06/17/24 Hydralazine Hcl (Hydralazine Hcl) 50 Mg Tab, 1 TAB PO BID for 100 Days, #200 06/17/24 Metoprolol Tartrate (Metoprolol Tartrate) 100 Mg Tab, 1 TAB PO BID for 100 Days, #200 06/17/24 Dorzolamide-Timolol (Dorzolamide Hcl/Timolol M) 1 Ml Eliana, 1 DROP EACHEYE BID for 38 Days, #10 06/17/24 Brimonidine Tartrate (Brimonidine Tartrate) 0.2 % Eliana, 1 DROP EACHEYE BID, #10 ML 3 Refills 06/17/24 Latanoprost (LATANOPROST) 0.005 % Eliana, 1 DROP EACHEYE QPM, #2.5 ML 6 Refills 06/17/24 Albuterol Sulfate (Albuterol Sulfate Hfa) 108 Mcg/Act Aer, 1-2 PUFF IN Q4-6HR for 17 Days, #18 06/17/24 Information Source: Patient Severity: Moderate Timing: Days Duration: Since onset Prehospital treatment: None Past Medical History PAST MEDICAL HISTORY: CHF, CKF, DM, Thyroid Surgical History: Denies all surgeries OIL WELL LOGGER History: No Pertinent OIL WELL LOGGER History Family History Family History: Reviewed,noncontributory to illness Social History Smoker: Non-Smoker Alcohol: Denies ETOH Use Drugs: Denies Drug Use Lives In: Home Constitutional: denies: chills, diaphoresis, fatigue, fever, malaise, sweats, weakness, others EENTM: denies: blurred vision, double vision, ear bleeding, ear discharge, ear drainage, ear pain, ear ringing, eye pain, eye redness, hearing loss, mouth pain, mouth swelling, nasal discharge, nose bleeding, nose congestion, nose pain, photophobia, tearing, throat pain, throat swelling, voice changes, others Respiratory: denies: cough, hemoptysis, orthopnea, SOB at rest, shortness of breath, SOB with excertion, stridor, wheezing, others Cardiovascular: reports: chest pain (pressure); denies: dizzy spells, diaphoresis, Dyspnea on exertion, edema, irregular heart beat, left arm pain, lightheadedness, palpitations, PND, syncope, others Gastrointestinal: denies: abdomen distended, abdominal pain, blood streaked bowels, constipated, diarrhea, dysphagia, difficulty swallowing, hematemesis, melena, nausea, poor appetite, poor fluid intake, rectal bleeding, rectal pain, vomiting, others Genitourinary: denies: abnormal vagina bleeding, burning, dyspareunia, dysuria, flank pain, frequency, hematuria, incontinence, pain, , vagina discharg e, urgency, others Neurological: denies: dizziness, fainting, headache, left sided numbness, left sided weakness, numbness, paresthesia, pre-existing deficit, right sided numbness, right sided weakness, seizure, speech problems, tingling, tremors, weakness, others Musculoskeletal: reports: others (bilateral leg swelling); denies: back pain, gout, joint pain, joint swelling, muscle pain, muscle stiffness, neck pain Integumetry: denies: bruises, change in color, change in hair/nails, dryness, laceration, lesions, lumps, rash, wounds, others Allergic/Immunocompromised: denies: Difficulty Healing, Frequent Infections, Hives, Itching, others Hematologic/Lymphatic: denies: anemia, blood clots, easy bleeding, easy bruising, swollen glands, others Endocrine: denies: excessive hunger, excessive sweating, excessive thirst, excessive urination, flushing, intolerance to cold, intolerance to heat, unexplained weight gain, unexplained weight loss, others Psychiatric: denies: anxiety, bipolar disorder, depression, hopeless, panic disorder, schizophrenia, sleepless, suicidal, others All Other Systems: Reviewed and Negative Physical Exam General Appearance: No Apparent Distress, Normal HEENT: Normal ENT Inspection, Pharynx Normal, TMs Normal Neck: Full Range of Motion, Non-Tender, Normal, Normal Inspection Respiratory: Chest Non-Tender, Lungs Clear, No Accessory Muscle Use, No Respiratory Distress, Normal Breath Sounds Cardiovascular: No Edema, No JVD, No Murmur, No Gallop, Normal Peripheral Pulses, Regular Rate/Rhythm Breast Exam: Deferred Gastrointestinal: No Organomegaly, Non Tender, No Pulsatile Mass, Normal Bowel Sounds, Soft Genitalia: Deferred Pelvic: Deferred Rectal: Deferred Extremities: No calf tenderness, Normal capillary refill, Normal inspection, Normal range of motion, Non-tender, No pedal edema Musculoskeletal : Apperance: Normal Neurologic: Alert, nuclear technologist II-XII nml as Tested, No Motor Deficits, Normal Affect, Normal Mood, No Sensory Deficits Cerebellar Function: Normal Reflexes: Normal Skin: Dry, Normal Color, Warm Lymphatic: No Adenopathy Was a procedure done? Was a procedure done?: No Differential Dx Considerations may include: CHF exacerbation, viral syndrome, pneumonia X-Ray, Labs, Meds, VS Vital Signs Date Time Temp Pulse Resp B/P (MAP) Pulse Ox O2 Delivery O2 Flow Rate FiO2 07/21/24 14:32 98.0 77 18 172/75 (107) 100 98.0 Lab Test 07/21/24 15:32 07/21/24 14:37 Range/Units Troponin I High Sensitivity 6 7 </=34 ng/L White Blood Count 10.1 4.4-10.8 10^3/uL Red Blood Count 3.21 L 4.0-5.20 10^6/uL Hemoglobin 9.5 L 12.2-16.2 g/dL Hematocrit 29.0 L 36.0-46.0 % Mean Corpuscular Volume 90.4 80.0-100.0 fL Mean Corpuscular Hemoglobin 29.5 28.0-32.0 pg Mean Corpuscular Hemoglobin Concent 32.6 32.0-36.0 g/dL Red Cell Distribution Width 17.2 H 11.8-14.3 % Platelet Count 355 140-450 10^3/uL Mean Platelet Volume 8.3 6.9-10.8 fL Neutrophils (%) (Auto) 82.8 H 37.0-80.0 % Lymphocytes (%) (Auto) 8.8 L 10.0-50.0 % Monocytes (%) (Auto) 5.1 0.0-12.0 % Eosinophils (%) (Auto) 3.0 0.0-7.0 % Basophils (%) (Auto) 0.3 0.0-2.0 % Neutrophils # (Auto) 8.4 1.6-8.6 10 ^3/uL Lymphocytes # (Auto) 0.9 0.4-5.4 10 ^3/uL Monocytes # (Auto) 0.5 0-1.3 10 ^3/uL Eosinophils # (Auto) 0.3 0-0.8 10 ^3/uL Basophils # (Auto) 0 0-0.2 10 ^3/uL Nucleated Red Blood Cells 0.0 % Sodium Level 142 136-145 mmol/L Potassium Level 3.9 3.5-5.1 mmol/L Chloride Level 106 98-107 mmol/L Carbon Dioxide Level 27 20-31 mmol/L Anion Gap 9 5-15 Blood Urea Nitrogen 35 H 9-23 mg/dL Creatinine 1.14 H 0.550-1.02 mg/dL Glomerular Filtration Rate Calc 52 >90 mL/min BUN/Creatinine Ratio 30.7 H 10.0-20.0 Serum Glucose 199 H 74-106 mg/dL Calcium Level 9.6 8.7-10.4 mg/dL B-Type Natriuretic Peptide 288.33 0-100 pg/mL Time of 1ST Reevaluation: 14:48 Reevaluation 1ST: Unchanged Patient Education/Counseling: Diagnosis, Treatment, Prognosis Family Education/Counseling: No Family Present Departure 1 Departure Time of Disposition: 16:27 (Patient has worsening volume overload secondary from heart failure. Patient has some lower extremity edema however patient it is now tonight shortness of breath and would like to go home. Patient was offered admission to the hospital however patient decided to go home instead) Impression: Primary Impression: Shortness of breath Additional Impression: Volume overload Qualified Codes: E87.70 - Fluid overload, unspecified Disposition: 01 HOME / SELF CARE / HOMELESS Condition: Stable Additional Instructions: You have increased fluid retention. You can double up on your Lasix for the next 3 days. You should follow up with your regular doctor this week. If your symptoms worsen or if any other concerns please return to the emergency room Discharged With: Self Critical Care Note Critical Care Time?: No Stability Stability form required: No I personally scribed for NAZIA UPTON MD ([email or web address]) on 07/21/24 at 14:24. Electronically submitted by Felisha Ruiz ([email or web address]). NAZIA UPTON MD Jul 21, 2024 14:24
[2024-07-21 14:53] LABS: Basophils # (auto) 0 10 ^3/uL (0-0.2); Basophils % (auto) 0.3 % (0.0-2.0); Eosinophils # (auto) 0.3 10 ^3/uL (0-0.8); Hemoglobin 9.5 g/dL (12.2-16.2); Lymphocytes # (auto) 0.9 10 ^3/uL (0.4-5.4); Lymphocytes % (auto) 8.8 % (10.0-50.0); Mean Corpuscular Hemoglobin 29.5 pg (28.0-32.0); Mean Corpuscular Hgb Conc. 32.6 g/dL (32.0-36.0); Mean Corpuscular Volume 90.4 fL (80.0-100.0); Monocytes # (auto) 0.5 10 ^3/uL (0-1.3); Monocytes % (auto) 5.1 % (0.0-12.0); Neutrophils # (auto) 8.4 10 ^3/uL (1.6-8.6); Neutrophils % (auto) 82.8 % (37.0-80.0); Platelet Count (auto) 355 10^3/uL (140-450); Red Blood Cells 3.21 10^6/uL (4.0-5.20); Red Cell Distribution Width 17.2 % (11.8-14.3); White Blood Cell 10.1 10^3/uL (4.4-10.8)
[2024-07-21 15:09] LABS: Chloride 106 mmol/L (98-107); Potassium 3.9 mmol/L (3.5-5.1); Sodium 142 mmol/L (136-145)
[2024-07-21 15:10] LABS: Anion Gap 9 (5-15); Carbon Dioxide 27 mmol/L (20-31)
[2024-07-21 15:11] LABS: Calcium 9.6 mg/dL (8.7-10.4)
--- NOTE | 2024-07-21 15:12 | DVH ---
EXAM: XY CHEST PORTABLE Indication: sob Technique: Single frontal view of the chest was obtained Comparison: XY CHEST PORTABLE on DOS: 06/15/24 FINDINGS: Lines and Tubes: None Lungs: Pulmonary vascular congestion. Pleura: No effusion. No pneumothorax. Cardiomediastinal contours: Cardiomegaly. Bones: No acute osseous abnormality. IMPRESSION: Cardiomegaly with pulmonary vascular congestion.
[2024-07-21 15:15] LABS: BUN/Creatinine Ratio 30.7 (10.0-20.0)
[2024-07-21 15:16] LABS: Blood Urea Nitrogen 35 mg/dL (9-23); Glucose 199 mg/dL (74-106)
[2024-07-21] MEDS: FUROSEMIDE 40 MG/4 ML VIAL IV ONE (17:59)
[2024-07-21 18:00] VITALS: BP 158/97; PULSE 80; RESP 19; TEMP 97.9; O2SAT 99
--- NOTE | 2024-07-23 11:28 | ECG ---
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
== END 2024-07-21 18:03 | disposition home or self-care (01) ==
LOC: ER 13:49
DX: E87.70 Fluid overload, unspecified (principal); R06.02 Shortness of breath; R07.89 Other chest pain; I50.9 Heart failure, unspecified; E11.22 Type 2 diabetes mellitus with diabetic chronic kidney disease; N18.9 Chronic kidney disease, unspecified; Z79.899 Other long term (current) drug therapy; Z79.890 Hormone replacement therapy; Z79.84 Long term (current) use of oral hypoglycemic drugs
CPT/HCPCS: 36415; 71045; 80048; 83880; 84484; 85025